=== PATIENT | male | born 1985 | race Caucasian/White ===

== ENCOUNTER → 2023-08-04 | Outpatient (CLI) | payer BC ==
--- NOTE | 2023-08-05 11:01 | CT ---
EXAMINATION TYPE: CT abdomen pelvis wo con DATE OF EXAM: 08/04/2023 COMPARISON: None HISTORY: LUQ pain. CT DLP: 251.10 mGycm Automated exposure control for dose reduction was used. TECHNIQUE: Helical acquisition of images was performed from the lung bases through the pelvis. FINDINGS: LUNG BASES: There is a 5 mm or less nodules bilaterally. Too small to characterize. No consolidation. Calcified granuloma right lower lobe. LIVER/GB: No significant abnormality is appreciated. PANCREAS: Limited by lack of intraperitoneal fat and no contrast. Pancreatic head mildly prominent wi thout evidence of discrete mass.. SPLEEN: No significant abnormality is seen. ADRENALS: No significant abnormality is seen. KIDNEYS: Punctate 1 mm bilateral medullary calcifications but no evidence of hydronephrosis. FREE AIR: No free air is visualized URINARY BLADDER: No significant abnormality is seen. ADENOPATHY: None visualized. OSSEOUS STRUCTURES: Degenerative disc disease L5-S1 bilateral hip arthropathy. BOWEL: Limited due to lack of contrast. No obvious obstruction. Appendix not seen with certainty. OTHER: Aorta normal caliber. IMPRESSION: 1. NO ACUTE INTRA-ABDOMINAL PROCESS. 2. THERE ARE MULTIPLE 5 MM OR LESS BILATERAL PULMONARY NODULES TOO SMALL TO CHARACTERIZE. DEDICATED C T CHEST IS RECOMMENDED 3. PUNCTATE 1 MM MEDULLARY CALCIFICATIONS WITH NO EVIDENCE OF HYDROURETER PROCESS 4. PANCREAS IS MILDLY PROMINENT IN SIZE LEVEL OF THE PANCREATIC HEAD LIMITED DUE TO LACK OF CONTRAST ON TODAY'S EXAM CONSIDER FOLLOW-UP ULTRASOUND..
== END | disposition home or self-care (01) ==
LOC: RADCTMAIN 18:46
PROVIDERS: ATTEND Family Medicine
DX: N28.89 Other specified disorders of kidney and ureter (principal); R91.8 Other nonspecific abnormal finding of lung field
CPT/HCPCS: 74176

== ENCOUNTER → 2023-12-01 | Outpatient (CLI) | payer BC ==
--- NOTE | 2023-12-01 09:27 | US ---
EXAMINATION TYPE: US abdomen complete DATE OF EXAM: 12/01/2023 COMPARISON: Correlation CT 08/04/2023 CLINICAL INDICATION: Male, 38 years old with history of R91.8 OTHER NONSPECIFIC ABNORMAL FINDING OF R93.5; Patient states abdominal pain for one month. No other symptoms. TECHNIQUE: Multiple sonographic images of the abdomen are obtained. FINDINGS: EXAM MEASUREMENTS: Liver Length: 13.9 cm Gallbladder Wall: 0.2 cm CBD: 0.5 cm Spleen: 9.4 cm Right Kidney: 10.0 x 3.9 x 5.0 cm Left Kidney: 9.4 x 4.6 x 4.7 cm Pancreas: wnl Liver: wnl Gallbladder: wnl Evidence for sonographic Durán's sign: No CBD: wnl Spleen: wnl Right Kidney: No hydronephrosis or masses seen Left Kidney: No hydronephrosis or masses seen Upper IVC: wnl Abd Aorta: wnl IMPRESSION: Unremarkable sonographic examination of the abdomen. The head of the pancreas shows no gross abnormal ity by ultrasound. Given the fullness on CT, consider a precautionary ultrasound follow-up in 3-6 mon ths to reassess this area. The finding may reflect anatomic variation.
--- NOTE | 2023-12-01 13:31 | CT ---
Exam: CT Chest without contrast. Date: 12/01/2023. Comparison: CT abdomen and pelvis on 08/04/2023. History: Nodule seen on prior abdomen and pelvis CT. Technique: CT examination of the chest was performed without contrast. Coronal and sagittal reformats were performed. CT dose lowering techniques were used, to include: automated exposure control, adjus tment for patient size, and/or use of iterative reconstruction. FINDINGS: Mediastinum and Mary: There is no axillary, mediastinal or hilar lymphadenopathy. Pleural and Pericardial spaces: There are no pleural or pericardial effusions. Upper Abdomen: The visualized upper abdomen is unremarkable. Cardiovascular: The thoracic aorta is normal in size. Lung Parenchyma and Airways: There is moderate upper lobe predominant centrilobular and paraseptal em physema. There is a 4.7 mm right upper lobe nodule on series 4 image 16. Calcified granulomas are see n within the right lower lobe. There is a 6.6 mm nodule in the right lower lobe on series 4 image 41 which is unchanged since the previous examination. There are several additional pulmonary nodules fred suring less than 6 mm within the right lower lobe which are unchanged. 5.3 mm left lower lobe pulmona ry nodule on series 4 image 39 is not included on the [id number] the previous examination. There i s a 7.9 mm nodule in left lower lobe on series 4 image 50 which is unchanged. There is no focal area of consolidation. Bones: No fracture or aggressive osseous lesion. IMPRESSION: 1. Pulmonary nodules as above. Follow-up in 6 months is recommended. 2. Moderate emphysema. 3. No acute findings.
== END | disposition home or self-care (01) ==
LOC: RADUSWWP 07:56
PROVIDERS: ATTEND Family Medicine
DX: R91.8 Other nonspecific abnormal finding of lung field (principal); R93.5 Abnormal findings on diagnostic imaging of other abdominal regions, including retroperitoneum; J43.2 Centrilobular emphysema; R10.9 Unspecified abdominal pain
CPT/HCPCS: 71250; 76700